=== PATIENT | female | born 1990 | race Two or more races ===

== ENCOUNTER 2023-08-02 15:30 | Inpatient (IN) | payer OTHER ==
[~2023-08-02] VITALS: Ht 172.7 cm; Wt 79.4 kg
[2023-08-24] MEDS ORDERED: ERYTHROMYCIN BASE 1 GM TUBE OP ONE (13:26)
[2023-08-24] MEDS ORDERED: OXYTOCIN 20 UNITS/1000ML RL PIGGYBAG IV ONE ×2 (13:26→17:35)
[2023-08-24] MEDS ORDERED: CHLORHEXIDINE GLUCONATE 120 ML BOTTLE TOP ONE (13:26)
[2023-08-24] MEDS ORDERED: PRENATAL TABLE1 EAC5 PO (13:42)
[2023-08-24] MEDS ORDERED: IRON325 MG PO (13:43)
[2023-08-24 14:01] LABS: INR < 0.93; PARTIAL THROMBOPLASTIN TIME 31.9 SECONDS (22.0-34.0); PROTHROMBIN TIME 9.6 SECONDS (9.0-11.5)
[2023-08-24 14:09] LABS: ALBUMIN 2.9 gm/dL (3.4-5.0); BILIRUBIN TOTAL 0.84 mg/dL (0.3-1.2); CALCIUM 9.5 mg/dL (8.5-10.1); CREATININE SERUM 0.92 mg/dL (0.55-1.02); GFR 70.3; GLOBULINA 3.2 G/DL (2.4-3.5); POTASSIUM 4.52 mEq/L (3.5-5.1); TOTAL PROTEIN 6.1 gm/dL (6.4-8.2)
[2023-08-24 14:15] LABS: HEMATOCRIT 38.2 % (36.0-45.00); HEMOGLOBIN 13.5 g/dL (12.0-15.00); MEAN CELL VOLUME 101.4 fL (80.00-100.00); MEAN CORPUSCULAR HEMOGLOBIN 35.7 pg (27.00-32.0); MEAN CORPUSCULAR HGB CONC 35.2 g/dl (32.0-36.0); RED BLOOD COUNT 3.77 M/uL (4.00-6.00); RED CELL DISTRIBUTION WIDTH 13.2 % (11.5-14.5)
[2023-08-24 14:37] LABS: PLATELET COUNT 116 K/uL (150-450)
[2023-08-24] MEDS ORDERED: OXYTOCIN 20 UNITS/500ML RL PIGGYBAG IV ONE (14:51)
[2023-08-24] MEDS ORDERED: OXYTOCIN 500 ML IV SCH (15:00)
[2023-08-24] MEDS ORDERED: ERYTHROMYCIN BASE 1 GM TUBE OP SCH (16:15)
[2023-08-24] MEDS ORDERED: CHLORHEXIDINE GLUCONATE 120 ML BOTTLE TOP SCH (16:15)
[2023-08-24] MEDS ORDERED: IBUprofen 400 MG TABLET PO PRN (16:15)
[2023-08-24] MEDS ORDERED: LIDOCAINE HCL 1% 200MG/20ML VIAL IJ SCH (16:15)
[2023-08-24] MEDS ORDERED: OXYTOCIN 1,000 ML IV SCH (16:45)
[2023-08-25 07:52] LABS: HEMATOCRIT 35.2 % (36.0-45.00); HEMOGLOBIN 12.2 g/dL (12.0-15.00); MEAN CORPUSCULAR HEMOGLOBIN 35.3 pg (27.00-32.0); MEAN CORPUSCULAR HGB CONC 34.6 g/dl (32.0-36.0); PLATELET COUNT 107 K/uL (150-450); RED BLOOD COUNT 3.45 M/uL (4.00-6.00); RED CELL DISTRIBUTION WIDTH 13.7 % (11.5-14.5)
[2023-08-25 08:14] LABS: ALBUMIN 2.6 gm/dL (3.4-5.0); BILIRUBIN TOTAL 0.83 mg/dL (0.3-1.2); CALCIUM 8.6 mg/dL (8.5-10.1); CREATININE SERUM 0.77 mg/dL (0.55-1.02); GFR 86.33; GLOBULINA 3.1 G/DL (2.4-3.5); POTASSIUM 4.13 mEq/L (3.5-5.1); TOTAL PROTEIN 5.7 gm/dL (6.4-8.2)
[2023-08-25] MEDS ORDERED: FF) RHO(D) IMMUNE GLOBULIN (POM) IM ONE (08:45)
== END 2023-08-26 12:30 | disposition home or self-care (01) | DRG 807 ==
LOC: LDR 08-18 15:30 → OB/GYN 08-24 13:00
PROVIDERS: Obstetrics & Gynecology; ADMIT Obstetrics & Gynecology; ATTEND Obstetrics & Gynecology
PROC: 10E0XZZ Delivery of Products of Conception, External Approach (ICD-10-PCS; principal; 2023-08-24)
PROC: 0KQM0ZZ Repair Perineum Muscle, Open Approach (ICD-10-PCS; 2023-08-24)
PROC: 4A1HXCZ Monitoring of Products of Conception, Cardiac Rate, External Approach (ICD-10-PCS; 2023-08-24)
DX: O70.1 Second degree perineal laceration during delivery (principal); Z37.0 Single live birth; Z3A.40 40 weeks gestation of pregnancy; Z20.822 Contact with and (suspected) exposure to COVID-19

== ENCOUNTER 2023-08-09 15:55 | Outpatient (CLI) | payer OTHER | END 2023-08-09 16:15 | disposition home or self-care (01) | LOC: NST 15:55 | PROVIDERS: ATTEND Obstetrics & Gynecology Gynecology | DX: Z34.83 Encounter for supervision of other normal pregnancy, third trimester (principal) ==

== ENCOUNTER 2023-08-23 13:06 | Outpatient (CLI) | payer OTHER ==
[2023-08-24] MEDS ORDERED: PRENATAL TABLE1 EAC5 PO (13:42)
[2023-08-24] MEDS ORDERED: IRON325 MG PO (13:43)
== END 2023-08-23 13:40 | disposition home or self-care (01) ==
LOC: NST 13:06
PROVIDERS: ATTEND Obstetrics & Gynecology
DX: Z34.83 Encounter for supervision of other normal pregnancy, third trimester (principal)